=== PATIENT | female | born 1965 | race African-American/Black ===

== ENCOUNTER 2018-10-25 17:53 | Emergency (ER) | payer OTHER ==
[~2018-10-25] VITALS: Ht 167.6 cm; Wt 118.0 kg
[2018-10-25] MEDS ORDERED: IBUPROFEN 800MG TABLET PO ONE (20:00)
[2018-10-25] MEDS ORDERED: ACETAMINOPHEN 325MG TABLET PO ONE (20:15)
[2018-10-25] MEDS ORDERED: DIAZEPAM 2 MG TABLET PO ONE (20:15)
[2018-10-25 20:23] VITALS: BP 138/84
== END 2018-10-25 20:25 | disposition home or self-care (01) ==
LOC: ER 17:53
DX: S16.1XXA Strain of muscle, fascia and tendon at neck level, initial encounter (principal); V43.62XA Car passenger injured in collision with other type car in traffic accident, initial encounter; Y93.89 Activity, other specified; Y92.488 Other paved roadways as the place of occurrence of the external cause; I10 Essential (primary) hypertension
CPT/HCPCS: 99283